=== PATIENT | female | born 1965 | race Caucasian/White ===

== ENCOUNTER 2019-09-28 19:33 | Emergency (ER) | payer MEDICAID ==
[~2019-09-28] VITALS: Ht 157.5 cm; Wt 73.6 kg
[2019-09-28 19:42] VITALS: Ht 157.5 cm; Wt 73.6 kg
[2019-09-28] MEDS ORDERED: VITAMIN D10000 UNI1 PO (19:44)
[2019-09-28] MEDS ORDERED: DILAUDID4 MG PO (19:44)
[2019-09-28] MEDS ORDERED: XANAX1 MG PO (19:44)
[2019-09-28] MEDS ORDERED: SYNTHROID300 MCG PO (19:44)
[2019-09-28] MEDS ORDERED: LAMICTAL100 MG PO (19:44)
[2019-09-28] MEDS ORDERED: TRAZODONE HCL300 MG PO (19:45)
[2019-09-28] MEDS ORDERED: CYCLOBENZAPRINE10 MG PO (19:45)
[2019-09-28] MEDS ORDERED: CHLORPROMAZINE200 MG PO (19:45)
[2019-09-28] MEDS ORDERED: PROPRANOLOL HCL20 MG PO (19:47)
[2019-09-28 21:43] VITALS: BP 135/77
== END 2019-09-28 21:43 | disposition home or self-care (01) ==
LOC: D.ER 19:33
DX: G89.29 Other chronic pain (principal); J45.909 Unspecified asthma, uncomplicated; R00.0 Tachycardia, unspecified; M19.90 Unspecified osteoarthritis, unspecified site